=== PATIENT | female | born 1970 | race Caucasian/White ===

== ENCOUNTER → 2017-08-17 | Outpatient (CLI) | payer BC ==
[2017-08-17] MEDS: GADOBUTROL 10 MMOL/10 ML VIAL IV (15:36)
== END | disposition home or self-care (01) ==
LOC: MRI 14:33
DX: G93.2 Benign intracranial hypertension (principal); G43.909 Migraine, unspecified, not intractable, without status migrainosus
CPT/HCPCS: 70553; A9585

== ENCOUNTER → 2017-09-07 | Outpatient (CLI) | payer BC ==
[2017-09-07] MEDS: LIDOCAINE WITH 8.4% SOD BICARB 3 ML DISP.SYRIN. INJ (07:45)
[2017-09-07 10:22] LABS: CSF PROTEIN 52.9 mg/dL (15.0-45.0)
[2017-09-07 10:22] LABS: CSF GLUCOSE 84 mg/dL (37-70)
[2017-09-07 11:05] LABS: CSF CLARITY CLEAR; CSF COLOR COLORLESS
[2017-09-07 11:06] LABS: CSF RBC COUNT 0; CSF WBC COUNT 1
[2017-09-09 19:17] LABS: HERPES SIMPLEX TYPE 1 Negative (Negative); HERPES SIMPLEX TYPE 2 Negative (Negative)
[2017-09-16 08:25] LABS: VIRAL CULT FINAL No virus isolated. (.)
== END | disposition home or self-care (01) ==
LOC: RAD 07:43
DX: G93.2 Benign intracranial hypertension (principal)
CPT/HCPCS: 62270; 82945; 84157; 87071; 87075; 87102; 87205; 87252; 87529; 89051